=== PATIENT | male | born 1975 | race Caucasian/White ===

== ENCOUNTER 2023-01-25 12:23 | Outpatient (CLI) | payer BC, SELFPAY ==
--- NOTE | ~2023-01-25 | XR_ITS ---
XR abdomen/kub 1V 01/25/2023 12:57 Indication: Renal stones. Procedure: KUB Comparison: No prior studies for comparison. Findings: There are bilateral renal stones, largest in the lower pole on the right measuring 11 mm. B owel gas pattern nonobstructive. Lung bases unremarkable. No acute osseous abnormality. No stones are identified in the expected course of the ureters or bladder. Impression: 1: Bilateral nephrolithiasis. Reviewed, dictated and finalized at location L. Impression: 1: Bilateral nephrolithiasis.
== END 2023-01-25 12:24 | disposition home or self-care (01) ==
PROVIDERS: Visit Provider Urology
DX: N20.0 Calculus of kidney (principal)
CPT/HCPCS: 74018

== ENCOUNTER 2023-02-02 04:43 | Day surgery (SDC) | payer BC, SELFPAY ==
[2023-01-30 14:11] VITALS: BMI 35.9
--- NOTE | 2023-01-30 14:18 | PC.NURSE ---
Report to the Outpatient Waiting Room, entrance under the green pavilion located off [facility], at time 9:30 on date 02/02/23. Planned Procedure Time: 11:30. Time changes happen often and if your time is changed the preop area will call you the afternoon before. - You and your visitor will be asked to self-screen and do not enter if you have any COVID symptoms. - A mask is optional within the hospital at this time. Patients may have clear liquids (water, carbonated beverages, clear teas, apple juice) until 3 hours prior to surgery (8:30) with a maximum of 20 ounces. - No food from midnight until time of surgery Take the following medications with a SIP of water the morning of surgery: PAIN PILL IF NEEDED DO NOT STOP ANY OF YOUR OTHER PRESCRIPTION MEDICATIONS PRIOR TO SURGERY ?EXCEPT THE FOLLOWING Medications to discontinue per physician: N/A Date to take last dose: N/A Please no make-up, nail amharic, hairspray, perfume, deodorant, or body powder the day of surgery. No jewelry (including any body piercings) or valuables the day of surgery, leave them at home. Please take a shower or bath the night before, or the morning of, surgery with an antibacterial soap. Wear comfortable, loose fitting clothing. - Jewelry must be removed prior to entering the operating room. Rings and piercings that are not removed may be cut off. - The hospital will not accept responsibility for valuables. - Please leave all valuables, including medications, at home the day of surgery. If you are going home after surgery, a licensed petroleum transport driver must drive you home. - NO public transportation without another adult if you receive anesthesia. - We recommend that an adult stay with you for 24 hours following discharge. - We also recommend that you do not drive, make important decision, drink alcoholic beverages, or take any drugs that were not prescribed by your health care provider for at least 24 hours after your discharge time. Follow any additional instructions given to you from your surgeon. If you or anyone in your household have experienced Covid symptoms in the past week, please notify your surgeon or the nurse liaison at the phone number below for possible testing. Telephone instructions given to PT - MIKEY LINDSAY and asked if any additional questions and then verbalized understanding. Patient advised to call surgeon office or pre surgery nurse liaison [phone] if any additional questions.
[2023-02-02] VITALS (9 sets, daily range): BP systolic 148–190; BP diastolic 72–91; PULSE 61–80; RESP 13–24; TEMP 36.4–36.8; O2SAT 95–97
--- NOTE | ~2023-02-02 | XR_ITS ---
Supine and upright views of the abdomen Clinical history: Lithotripsy COMPARISON: 01/25/2023 Findings: Bowel gas pattern is nonspecific. No evidence for obstruction or free air. Stable right low er pole renal stone measuring approximately 12 mm in diameter. There is a suspected proximal left ure teral stone measuring 6 mm.. Osseous structures are intact. Impression: 12 mm right lower pole renal stone. Probable 6 mm proximal left ureteral stone. Reviewed, dictated and finalized at location . Impression: 12 mm right lower pole renal stone. Probable 6 mm proximal left ureteral stone.
--- NOTE | 2023-02-02 06:23 | WPDHPUPDATE1 ---
History and Physical Update Update Date/Time: 02/02/23 06:23 History and Physical has been reviewed, including an updated exam of the patient. There are NO changes in the patient's condition. Risks, benefits, and alternatives have been discussed and questions answered. Patient agrees to proceed with procedure.
--- NOTE | 2023-02-02 07:53 | P.PNAN_ITS ---
Anes - Initial Pre Proc Eval Procedure: Operation Date: 02/02/23 11:30 Proposed Procedures p Left Extracorporeal Shock Wave Lithotripsy - Main Alberts MD Date/Time: 02/02/23 07:53 Surgeon: Main Alberts MD Pre Op Diagnosis: Lt Renal Stone Patient Data Age: 47 Gender: M Height: 1.88 m Weight: 127 kg Allergies Allergy/AdvReac Type Severity Reaction Status Date / Time No Known Allergies Allergy Verified 01/30/23 14:10 Home Medications Medication Instructions Recorded Confirmed Type hydrocodone 5 mg-acetaminophen 325 1 tablet PO Q6H PRN Pain 01/30/23 01/30/23 History mg tablet Patient hx anesthesia problems: none Family hx anesthesia problems: none Results Review: All pre-operative results and documents have been reviewed as part of the pre- operative evaluation. [facility] Past Medical History Medical History (Updated 02/02/23 @ 07:53 by Christo Hanna DO) CAD (coronary artery disease) Surgical History Surgical History (Updated 02/02/23 @ 07:53 by Christo Hanna DO) History of coronary artery stent placement x1 - 2016 Social History Social History Smoking packs per day: 1 Smoking cigarettes per day: 20.0 Years smoked: 20 Smoking pack-years: 20.00 Smoking status: Current every day smoker Tobacco type: cigarettes Alcohol intake: current Alcohol use details: VERY RARE Substance use: never Substance use type: does not use Living arrangements: with family Spiritual care concerns: No Anes - Eval Final PreProcedure Day of Procedure 02/02/23 07:53 Patient weight: obese Heart: regular rate and rhythm Lungs: clear to auscultation Airway: Mallampati scale class II Neurological: alert and oriented Last oral intake: >/= 8 hours ASA classification: III Emergent: no Anesthetic plan: proceed Anesthesia type and monitoring: general LMA and standard monitoring Results Review: All pre-operative results and documents have been reviewed as part of the pre- operative evaluation. Informed Consent: The patient's anesthetic plan and its attendant risks and benefits were discussed with the patient/family/POA. Questions were solicited and answers provided to the satisfaction of the patient/family/POA.
--- NOTE | 2023-02-02 10:12 | ECG_ITS ---
Measurements Intervals Wisdom Rate: 69 P: 8 MD: 173 QRS: 5 QRSD: 93 T: -5 QT: 365 QTc: 392 Interpretive Statements SINUS RHYTHM NONSPECIFIC T-WAVE ABNORMALITY BORDERLINE ECG NO PREVIOUS ECG AVAILABLE FOR COMPARISON Electronically Signed On 02-02-2023 17:13:51 CDT by Danny Foss M.D.
[2023-02-02 10:53] LABS: INR 0.9; Prothrombin Time 13.1 Seconds (11.1-14.7)
[2023-02-02] MEDS: LACTATED RINGERS 1,000 ML 30 ML IV CONT (10:53)
[2023-02-02 10:54] LABS: Partial Thromboplastin Time 35.1 SECONDS (22.3-36.8)
[2023-02-02] MEDS: ceFAZolin 3 GM/D5W 100 ML 100 ML IVPB (11:49)
--- NOTE | 2023-02-02 12:21 | W.PM.PROC2 ---
Procedure Note - Detailed Date of Procedure 02/02/23 Pre-op Diagnosis Left ureteral stone / right kidney stones Post-op Diagnosis Same Procedure Performed Left ESWL Surgeon Main Alberts MD Anesthesia General Description of Procedure The patient was brought to the operative suite where he was placed in the supine position on the Dornier lithotripsy table. The focal point of the lithotripter was placed at a 6mm left proximal-mid calculus. A total of 3000 shocks were delivered at a power setting of 6. There appeared to be good fragmentation of the stone. The patient tolerated the procedure well and was taken to the recovery room in good condition.
[2023-02-02] MEDS: fentaNYL CITRATE INJ (*CRX) 100 MCG/2 ML VIAL 25 MCG IV PUSH ×4 (13:08→13:50)
[2023-02-02] MEDS: ONDANSETRON INJ 4 MG/2 ML VIAL IV PUSH (13:50)
[2023-02-02] MEDS: oxyCODONE HCL (*CRX) 5 MG TAB IR PO (14:24)
== END 2023-02-02 15:00 | disposition home or self-care (01) ==
PROVIDERS: Visit Provider Urology
PROC: (CPT 50590; principal; 2023-02-02 11:30)
DX: N20.2 Calculus of kidney with calculus of ureter (principal)
CPT/HCPCS: 50590; 36415; 74018; 85610; 85730; 93005; A9270; J0690; J1100; J2250; J2405; J2704; J3010; J7120

== ENCOUNTER 2023-02-09 11:38 | Outpatient (CLI) | payer BC, SELFPAY ==
--- NOTE | ~2023-02-09 | XR_ITS ---
EXAMINATION: XR abdomen/kub 1V DATE: 02/09/2023 12:00 INDICATION: Flank pain. Left sided back pain. TECHNIQUE: A supine view of the abdomen on 2 radiographs was obtained. COMPARISON: Abdomen radiograph 02/02/2023 FINDINGS: There are no dilated loops of bowel. There is a 13 mm stone in right kidney. There are 3 de nsities overlying proximal left ureter measuring up to 4 mm. IMPRESSION: 1. Stones in the right kidney and proximal left ureter. Reviewed, dictated and finalized at location A.
== END 2023-02-09 11:39 | disposition home or self-care (01) ==
LOC: ANHIMG 11:45
PROVIDERS: Visit Provider Urology
DX: R10.9 Unspecified abdominal pain (principal); N20.2 Calculus of kidney with calculus of ureter
CPT/HCPCS: 74018

== ENCOUNTER → 2023-02-23 08:22 | Outpatient (CLI) | payer BC, SELFPAY ==
--- NOTE | ~2023-02-23 | XR_ITS ---
EXAMINATION: XR abdomen/kub 1V DATE: 02/23/2023 08:41 INDICATION: Flank pain, acute. TECHNIQUE: A supine view of the abdomen on 2 radiographs was obtained. COMPARISON: Abdomen radiographs 02/09/2023 FINDINGS: There are no dilated loops of bowel. There is a 13 mm stone in right kidney lower pole. The re are 4 stones in left kidney measuring up to 3 mm. IMPRESSION: 1. Bilateral kidney stones. Reviewed, dictated and finalized at location A. IMPRESSION: 1. Bilateral kidney stones.
== END ==
PROVIDERS: PCP Urology; Visit Provider Urology
DX: R10.9 Unspecified abdominal pain (principal); N20.0 Calculus of kidney
CPT/HCPCS: 74018

== ENCOUNTER → 2023-08-28 16:35 | Outpatient (CLI) | payer BC, SELFPAY ==
--- NOTE | ~2023-08-28 | XR_ITS ---
XR abdomen/kub 1V 08/28/2023 17:01 Indication: Ureteral stone Procedure: KUB Comparison: Comparison to multiple prior studies sequentially, with oldest reviewed study dated 01/25. Findings: There is a large stone in the lower pole of the right kidney measuring 11 mm. Bowel gas pat tern nonobstructive. No acute osseous abnormality. Impression: 1: Right nephrolithiasis. Reviewed, dictated and finalized at location B. 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
== END ==
PROVIDERS: PCP Urology; Visit Provider Urology
DX: N20.1 Calculus of ureter (principal); R10.9 Unspecified abdominal pain
CPT/HCPCS: 74018

== ENCOUNTER 2023-09-28 01:40 | Day surgery (SDC) | payer BC, SELFPAY ==
[2023-09-26 13:10] VITALS: BMI 34.4
--- NOTE | 2023-09-26 13:14 | PC.NURSE ---
Report to the Outpatient Waiting Room, entrance under the green pavilion located off [facility], at time 1300 on date 09/28/23. Planned Procedure Time: 1500. Time changes happen often and if your time is changed the preop area will call you the afternoon before. - You and your visitor will be asked to self-screen and do not enter if you have any COVID symptoms. - A mask is optional within the hospital at this time. Patients may have clear liquids (water, carbonated beverages, clear teas, apple juice) until 3 hours prior to surgery with a maximum of 20 ounces. - No food from midnight until time of surgery Take the following medications with a SIP of water the morning of surgery: PAIN PILL IF NEEDED DO NOT STOP ANY OF YOUR OTHER PRESCRIPTION MEDICATIONS PRIOR TO SURGERY ?EXCEPT THE FOLLOWING Medications to discontinue per physician: N/A Date to take last dose: N/A Please no make-up, nail [place], hairspray, perfume, deodorant, or body powder the day of surgery. No jewelry (including any body piercings) or valuables the day of surgery, leave them at home. Please take a shower or bath the night before, or the morning of, surgery with an antibacterial soap. Wear comfortable, loose fitting clothing. - Jewelry must be removed prior to entering the operating room. Rings and piercings that are not removed may be cut off. - The hospital will not accept responsibility for valuables. - Please leave all valuables, including medications, at home the day of surgery. If you are going home after surgery, a licensed milk pickup driver must drive you home. - NO public transportation without another adult if you receive anesthesia. - We recommend that an adult stay with you for 24 hours following discharge. - We also recommend that you do not drive, make important decision, drink alcoholic beverages, or take any drugs that were not prescribed by your health care provider for at least 24 hours after your discharge time. Follow any additional instructions given to you from your surgeon. If you or anyone in your household have experienced Covid symptoms in the past week, please notify your surgeon or the nurse liaison at the phone number below for possible testing. Telephone instructions given to PT - MIKEY LINDSAY and asked if any additional questions and then verbalized understanding. Patient advised to call surgeon office or pre surgery nurse liaison [phone] if any additional questions.
--- NOTE | 2023-09-27 16:38 | P.HP_ITS ---
History of Present Illness History of Present Illness Consent: Risks, benefits, and alternatives have been discussed and questions answered. Patient agrees to proceed with procedure. Chief complaint: Right Kidney Stone Narrative: Clarence Root is a 48 year old male Without a known history of recurrent urolithiasis. Several months ago he had CT imaging that demonstrated several small stones in his right kidney with a 6 mm right renal pelvic stone. Started causing neural pain and he now elects for right ESWL. He is aware the risk including, but not limited to, need for additional procedures, adverse cardiopulmonary events, hematuria or perinephric hematoma. Review of Systems Cardiovascular: Cardiovascular: Denies chest pain, Denies lightheadedness, Denies palpitations and Denies dyspnea Respiratory: Respiratory: Denies dyspnea Gastrointestinal: Gastrointestinal: Denies diarrhea, Denies nausea and Denies vomiting Genitourinary: Genitourinary: Denies hematuria and Denies dysuria Endocrine: Endocrine: Denies palpitations [facility] Past Medical History Medical History (Updated 09/27/23 @ 16:39 by Main Alberts MD) CAD (coronary artery disease) Surgical History Surgical History (Updated 02/02/23 @ 07:53 by Christo Hanna DO) History of coronary artery stent placement x1 - 2016 Social History Social History Smoking packs per day: 1 Smoking cigarettes per day: 20.0 Years smoked: 20 Smoking pack-years: 20.00 Smoking status: Current every day smoker Tobacco type: cigarettes Alcohol intake: never Alcohol use details: VERY RARE Substance use: never Substance use type: does not use Living arrangements: alone Spiritual care concerns: No Meds Home Medications and Allergies Home Medications Medication Instructions Recorded Confirmed Type hydrocodone 5 mg-acetaminophen 325 1 tablet PO QID PRN Pain 09/26/23 09/26/23 History mg tablet Allergies Allergy/AdvReac Type Severity Reaction Status Date / Time No Known Allergies Allergy Verified 09/26/23 13:08 Exam Const: General: no acute distress Resp: Effort & Inspection: normal respiratory effort GI: Inspection: non-distended GI Palp: No abdominal tenderness and No Guarding due to palpation present (GI) Auscultation: normal bowel sounds Assessment and Plan Assessment and plan (1) Renal calculus, right: Code(s): N20.0 - Calculus of kidney Status: Acute Assessment and Plan: * Right ESWL
[2023-09-28] VITALS (8 sets, daily range): BP systolic 131–181; BP diastolic 74–94; PULSE 62–90; RESP 14–20; TEMP 36.1–37.1; O2SAT 97–99
--- NOTE | ~2023-09-28 | CT_ITS ---
EXAMINATION: CT abdomen pelvis wo con DATE: 09/28/2023 14:08 INDICATION: Right-sided kidney stone TECHNIQUE: Computed tomography (CT) of the abdomen and pelvis was performed without intravenous contr ast. The dose-length product (DLP) was 899.05 mGy-cm. Automated exposure control and iterative recons truction technique were employed. COMPARISON: None FINDINGS: Minimal dependent atelectasis is present in the lung bases. The heart size is normal. The l iver, spleen, pancreas, gallbladder, and adrenal glands are normal. There is an 8 mm stone projecting in the proximal right ureter causing mild hydronephrosis. There is a 9 mm nonobstructing stone of th e right kidney lower pole. The left kidney is unremarkable. There are no stones in the urinary bladde r. There is calcified atherosclerosis of the aorta and many of the other arteries. No pathologically enlarged abdominal or pelvic lymph nodes are identified. No free intraperitoneal gas or evidence of b owel obstruction. There is diverticulosis of the colon. There is subtle fat stranding adjacent to the mid sigmoid colon. There is a small umbilical hernia containing fat. IMPRESSION: 1. 8 mm stone of the proximal right ureter causing mild hydronephrosis. 2. Nonobstructing right nephrolithiasis. 3. Diverticulosis with mild uncomplicated sigmoid diverticulitis. Reviewed, dictated and finalized at location B. 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
--- NOTE | ~2023-09-28 | XR_ITS ---
EXAMINATION: XR abdomen/kub 1V INDICATION: Calculus of the ureter TECHNIQUE: Supine views of the abdomen were obtained on 2 radiographs. COMPARISON: 08/28/2023 FINDINGS: A 6 mm stone projects in the expected location of the proximal right ureter at the level of the right L3 transverse process. There is a 12 mm stone of the right kidney lower pole. No additiona l urolithiasis is identified. The bowel gas pattern is normal. IMPRESSION: 1. 6 mm stone in the proximal right ureter. 2. Right nephrolithiasis. Reviewed, dictated and finalized at location B. [employer]
--- NOTE | 2023-09-28 06:12 | WPDHPUPDATE1 ---
History and Physical Update Update Date/Time: 09/28/23 06:12 History and Physical has been reviewed, including an updated exam of the patient. There are NO changes in the patient's condition. Risks, benefits, and alternatives have been discussed and questions answered. Patient agrees to proceed with procedure.
[2023-09-28 13:26] LABS: Appearance Urine Clear (Clear); Bilirubin Urine Negative (Negative); Blood Urine Negative (Negative); Color Urine Yellow (Yellow); Glucose Urine UA Negative (Negative); Ketones Urine Negative (Negative); Leukocyte Esterase Ur Negative LEU/UL (Negative); Nitrate Urine Negative (Negative); Protein Urine Negative (Negative); Specific Grav Ur 1.022 (1.001-1.035); Urobilinogen Urine 0.2 mg/dL (<2.0); pH Urine 5.5 (5.0-9.0)
--- NOTE | 2023-09-28 13:41 | WPDANESEPPF ---
Anes - Initial Pre Proc Eval Procedure: Operation Date: 09/28/23 15:00 Proposed Procedures p Right Extracorporeal Shock Wave Lithotripsy - Main Alberts MD Date/Time: 09/28/23 13:41 Surgeon: Main Alberts MD Pre Op Diagnosis: Right Kidney Stone Patient Data Age: 48 Gender: M Height: 1.88 m Weight: 121.6 kg Allergies Allergy/AdvReac Type Severity Reaction Status Date / Time No Known Allergies Allergy Verified 09/26/23 13:08 Home Medications Medication Instructions Recorded Confirmed Type hydrocodone 5 mg-acetaminophen 325 1 tablet PO QID PRN Pain 09/26/23 09/26/23 History mg tablet Laboratory Tests 09/28/23 13:05 Urine Color Pending Urine Appearance Pending Urine pH Pending Ur Specific [place] Pending Urine Protein Pending Urine Glucose (UA) Pending Urine Ketones Pending Ur Blood (Man) Pending Urine Nitrate Pending Urine Bilirubin Pending Urine Urobilinogen Pending Leukocyte Esterase Rfl Pending Patient hx anesthesia problems: none Family hx anesthesia problems: none Results Review: All pre-operative results and documents have been reviewed as part of the pre-operative evaluation. [facility] Past Medical History Medical History CAD (coronary artery disease) Surgical History Surgical History (Updated 02/02/23 @ 07:53 by Christo Hanna DO) History of coronary artery stent placement x1 - 2016 Social History Social History Smoking packs per day: 1 Smoking cigarettes per day: 20.0 Years smoked: 20 Smoking pack-years: 20.00 Smoking status: Current every day smoker Tobacco type: cigarettes Alcohol intake: never Alcohol use details: VERY RARE Substance use: never Substance use type: does not use Living arrangements: alone Spiritual care concerns: No Anes - Eval Final PreProcedure Day of Procedure 09/28/23 13:41 Patient weight: obese Heart: regular rate and rhythm Lungs: decreased breath sounds Airway: Mallampati scale class II Neurological: alert and oriented Last oral intake: >/= 8 hours ASA classification: III Emergent: no Anesthetic plan: proceed Anesthesia type and monitoring: general LMA and standard monitoring Results Review: All pre-operative results and documents have been reviewed as part of the pre-operative evaluation. Informed Consent: The patient's anesthetic plan and its attendant risks and benefits were discussed with the patient/family/POA. Questions were solicited and answers provided to the satisfaction of the patient/family/POA.
[2023-09-28] MEDS: fentaNYL CITRATE INJ (*CRX) 100 MCG/2 ML VIAL 50 MCG IV PUSH (13:45)
[2023-09-28] MEDS: LACTATED RINGERS 1,000 ML 30 ML IV CONT (13:45)
[2023-09-28 13:54] LABS: Add Urine Microscopic? NO
[2023-09-28 14:22] LABS: Prothrombin Time 13.6 Seconds (11.1-14.7)
[2023-09-28 14:23] LABS: Partial Thromboplastin Time 33.8 SECONDS (22.3-36.8)
[2023-09-28] MEDS: ceFAZolin 3 GM/D5W 100 ML 100 ML IVPB (15:26)
--- NOTE | 2023-09-28 15:37 | W.PM.PROC2 ---
Procedure Note - Detailed Date of Procedure 09/28/23 Pre-op Diagnosis Right Kidney and Right Ureteral Stone Post-op Diagnosis Same Procedure Performed Right ESWL Surgeon Main Alberts MD Anesthesia General Description of Procedure The patient was brought to the operative suite where he was placed in the supine position on the Dornier lithotripsy table. The focal point of the lithotripter was placed at a 6-7mm obstructing right proximal ureteral calculus. A total of 3000 shocks were delivered at a power setting of 6. There appeared to be good fragmentation of the stone. The patient tolerated the procedure well and was taken to the recovery room in good condition. Drains No Pathology None sent Complications No immediate complications Condition Stable Disposition PACU
[2023-09-28] MEDS: fentaNYL CITRATE INJ (*CRX) 100 MCG/2 ML VIAL 25 MCG IV PUSH ×4 (16:49→16:55)
[2023-09-28] MEDS: oxyCODONE HCL (*CRX) 5 MG TAB IR PO (17:06)
[2023-09-28] MEDS: KETOROLAC 30 MG/ML VIAL (*BKC) IV PUSH (17:15)
--- NOTE | 2023-09-28 17:44 | SUR.PHASEII ---
[id number] - dr. rocha spoke with pt in regards to surgery
== END 2023-09-28 17:37 | disposition home or self-care (01) ==
PROVIDERS: Visit Provider Urology
PROC: (CPT 50590; principal; 2023-09-28 15:00)
DX: N20.2 Calculus of kidney with calculus of ureter (principal); I25.10 Atherosclerotic heart disease of native coronary artery without angina pectoris; Z95.5 Presence of coronary angioplasty implant and graft; F17.210 Nicotine dependence, cigarettes, uncomplicated; E66.9 Obesity, unspecified; Z68.34 Body mass index [BMI] 34.0-34.9, adult
CPT/HCPCS: 50590; 36415; 74018; 74176; 81003; 85610; 85730; A9270; J0690; J1100; J1885; J2250; J2405; J2704; J3010; J7120

== ENCOUNTER 2023-10-19 14:08 | Outpatient (CLI) | payer BC, SELFPAY | END 2023-10-19 14:09 | disposition home or self-care (01) | PROVIDERS: Visit Provider Urology | DX: Z01.818 Encounter for other preprocedural examination (principal); N20.0 Calculus of kidney | CPT/HCPCS: 87086 ==

== ENCOUNTER 2023-10-26 00:53 | Day surgery (SDC) | payer BC, SELFPAY ==
--- NOTE | 2023-10-16 11:46 | PC.NURSE ---
Report to the Outpatient Waiting Room, entrance under the green pavilion located off [facility], at time 11:00 on date 10/26/23. Planned Procedure Time: 1:00. Time changes happen often and if your time is changed the preop area will call you the afternoon before. - You and your visitor will be asked to self-screen and do not enter if you have any COVID symptoms. - A mask is optional within the hospital at this time. Patients may have clear liquids (water, carbonated beverages, clear teas, apple juice) until 3 hours prior to surgery (10:00) with a maximum of 20 ounces. - No food from midnight until time of surgery Take the following medications with a SIP of water the morning of surgery: N/A DO NOT STOP ANY OF YOUR OTHER PRESCRIPTION MEDICATIONS PRIOR TO SURGERY ?EXCEPT THE FOLLOWING Medications to discontinue per physician: N/A Date to take last dose: N/A Please no make-up, nail french, hairspray, perfume, deodorant, or body powder the day of surgery. No jewelry (including any body piercings) or valuables the day of surgery, leave them at home. Please take a shower or bath the night before, or the morning of, surgery with an antibacterial soap. Wear comfortable, loose fitting clothing. - Jewelry must be removed prior to entering the operating room. Rings and piercings that are not removed may be cut off. - The hospital will not accept responsibility for valuables. - Please leave all valuables, including medications, at home the day of surgery. If you are going home after surgery, a licensed delivery driver/customer service must drive you home. - NO public transportation without another adult if you receive anesthesia. - We recommend that an adult stay with you for 24 hours following discharge. - We also recommend that you do not drive, make important decision, drink alcoholic beverages, or take any drugs that were not prescribed by your health care provider for at least 24 hours after your discharge time. Follow any additional instructions given to you from your surgeon. If you or anyone in your household have experienced Covid symptoms in the past week, please notify your surgeon or the nurse liaison at the phone number below for possible testing. Telephone instructions given to MELISA JENSEN and asked if any additional questions and then verbalized understanding. Patient advised to call surgeon office or pre surgery nurse liaison [phone] if any additional questions.
[2023-10-16 11:55] VITALS: BMI 34.2
[2023-10-26] VITALS (10 sets, daily range): BP systolic 149–188; BP diastolic 66–90; PULSE 86–98; RESP 12–27; TEMP 36.6–37.8; O2SAT 94–100
--- NOTE | ~2023-10-26 | XR_ITS ---
Supine and upright views of the abdomen Clinical history: Lithotripsy COMPARISON: 09/28/2023 Findings: Bowel gas pattern is nonspecific. No evidence for obstruction or free air. 11 mm right jessie l stone present. Osseous structures are intact. Impression: 11 mm right renal stone. Reviewed, dictated and finalized at [facility]. Impression: 11 mm right renal stone.
--- NOTE | 2023-10-26 06:18 | WPDHPUPDATE1 ---
History and Physical Update Update Date/Time: 10/26/23 06:18 History and Physical has been reviewed, including an updated exam of the patient. There are NO changes in the patient's condition. Risks, benefits, and alternatives have been discussed and questions answered. Patient agrees to proceed with procedure.
[2023-10-26] MEDS: LACTATED RINGERS 1,000 ML 30 ML IV CONT ×2 (10:00→13:20)
--- NOTE | 2023-10-26 10:11 | WPDANESEPPF ---
Anes - Initial Pre Proc Eval Procedure: Operation Date: 10/26/23 11:30 Proposed Procedures p Right Extracorporeal Shock Wave Lithotripsy - Main Alberts MD Date/Time: 10/26/23 10:11 Surgeon: Main Alberts MD Pre Op Diagnosis: right renal stones Patient Data Age: 48 Gender: M Height: 1.88 m Weight: 121.2 kg Allergies Allergy/AdvReac Type Severity Reaction Status Date / Time No Known Allergies Allergy Verified 10/16/23 11:46 Home Medications Medication Instructions Recorded Confirmed Type No Home Medications 10/16/23 10/16/23 History Patient hx anesthesia problems: other (violent emergence) Family hx anesthesia problems: none Results Review: All pre-operative results and documents have been reviewed as part of the pre-operative evaluation. [facility] Past Medical History Medical History (Updated 10/26/23 @ 10:12 by Rogelio Frias MD) CAD (coronary artery disease) Obesity Surgical History Surgical History History of coronary artery stent placement x1 - 2016 Social History Social History Smoking packs per day: 1 Smoking cigarettes per day: 20.0 Years smoked: 20 Smoking pack-years: 20.00 Smoking status: Current every day smoker Tobacco type: cigarettes Alcohol intake: never Alcohol use details: VERY RARE Substance use: never Substance use type: does not use Living arrangements: alone Spiritual care concerns: No Anes - Eval Final PreProcedure Day of Procedure 10/26/23 10:11 Patient weight: obese Heart: regular rate and rhythm Lungs: clear to auscultation Airway: Mallampati scale class II Neurological: alert and oriented Last oral intake: >/= 8 hours ASA classification: III Emergent: no Anesthetic plan: proceed Anesthesia type and monitoring: general LMA and standard monitoring Results Review: All pre-operative results and documents have been reviewed as part of the pre-operative evaluation. Informed Consent: The patient's anesthetic plan and its attendant risks and benefits were discussed with the patient/family/POA. Questions were solicited and answers provided to the satisfaction of the patient/family/POA.
[2023-10-26] MEDS: FAMOTIDINE 20 MG/2 ML VIAL IV PUSH (10:24)
[2023-10-26] MEDS: ceFAZolin 3 GM/D5W 100 ML 100 ML IVPB (11:48)
--- NOTE | 2023-10-26 11:58 | W.PM.PROC2 ---
Procedure Note - Detailed Date of Procedure 10/26/23 Pre-op Diagnosis Right renal stones Post-op Diagnosis Same Procedure Performed Right ESWL Surgeon Main Alberts MD Anesthesia General Description of Procedure The patient was brought to the operative suite where he was placed in the supine position on the Dornier lithotripsy table. The focal point of the lithotripter was placed at a 8-9mm right lower calyceal calculus. A total of 2500 shocks were delivered at a power setting of 4. There appeared to be good fragmentation of the stone. The patient tolerated the procedure well and was taken to the recovery room in good condition. Drains No Packing No Pathology None sent Complications No immediate complications Condition Stable Disposition PACU
[2023-10-26] MEDS: ONDANSETRON INJ 4 MG/2 ML VIAL IV PUSH (13:25)
[2023-10-26] MEDS: fentaNYL CITRATE INJ (*CRX) 100 MCG/2 ML VIAL 25 MCG IV PUSH ×4 (13:38→14:32)
[2023-10-26] MEDS: MEPERIDINE HCL INJ (*CRX) 50 MG/ML AMPUL 25 MG IV PUSH (14:11)
[2023-10-26] MEDS: KETOROLAC 30 MG/ML VIAL (*BKC) IV PUSH (14:12)
[2023-10-26] MEDS: diphenhydrAMINE HCl INJ 50 MG/ML VIAL 25 MG IV PUSH (14:21)
== END 2023-10-26 14:50 | disposition home or self-care (01) ==
PROVIDERS: Visit Provider Urology
PROC: (CPT 50590; principal; 2023-10-26 11:30)
DX: N20.0 Calculus of kidney (principal); F17.210 Nicotine dependence, cigarettes, uncomplicated; E66.9 Obesity, unspecified; Z68.33 Body mass index [BMI] 33.0-33.9, adult; Z98.890 Other specified postprocedural states; Z95.5 Presence of coronary angioplasty implant and graft; Z86.79 Personal history of other diseases of the circulatory system
CPT/HCPCS: 50590; 74018; J0690; J1200; J1885; J2175; J2250; J2405; J3010; J7120

== ENCOUNTER 2023-11-12 14:49 | Outpatient (CLI) | payer BC, SELFPAY ==
--- NOTE | ~2023-11-12 | XR_ITS ---
Supine and upright views of the abdomen Clinical history: Right renal stone COMPARISON: 10/26/2023 Findings: Bowel gas pattern is nonspecific. No evidence for obstruction or free air. No abnormal mass lesion or calcification is seen. Osseous structures are intact. Impression: No significant abnormality is seen. Reviewed, dictated and finalized at [facility]. Impression: No significant abnormality is seen.
== END 2023-11-12 14:50 ==
LOC: MICIMG 14:50
PROVIDERS: PCP Urology; Visit Provider Urology
DX: N20.0 Calculus of kidney (principal)
CPT/HCPCS: 74018

== ENCOUNTER 2025-06-05 08:21 | Emergency (ER) | payer BC, SELFPAY ==
--- NOTE | 2025-06-05 08:23 | ED_ITS ---
HPI - Male Genitourinary General Chief complaint: Urogenital-Male Stated complaint: BLOOD IN URINE Time Seen by Provider: 06/05/25 08:22 Source: patient Mode of arrival: ambulatory Limitations: no limitations History of Present Illness HPI Narrative: Clarence is a 49-year-old male patient presenting to the clinic today with complaints of blood in his urine off and on for the past 2 years. He reports that 2 years ago his urologist-Dr. Alberts performed a lithotripsy on him for his kidney stones. Ever since then he has had intermittent blood in his urine. Has stated he seen his urologist for this after having the lithotripsy and told him about the blood in his urine and the reports that the urologist did not do any further investigation. Last night it took him approx 45 minutes to urinate/pass a large clot from his urethra. Denies any abdomen pain or flank pain currently. No fever, chills, or body aches. Is able to pass urine freely at this time. He does not currently take any medications. He is a current smoker. History of cardiac stent, hyperlipidemia, obesity, HTN, and kidney stones. Related Data Allergies Allergy/AdvReac Type Severity Reaction Status Date / Time No Known Allergies Allergy Verified 06/05/25 08:31 Review of Systems Review of Systems: Pertinent positives per HPI. Patient denies any fever, chills, rash, headache, visual changes, dizziness, cough, runny nose, sore throat, shortness of breath, chest pain, palpitations, nausea, vomiting, diarrhea, constipation, abdominal pain, or any urinary issues. [facility] Past Medical History Medical History Obesity CAD (coronary artery disease) Surgical History Surgical History History of coronary artery stent placement x1 - 2016 Social History Social History Smoking packs per day: 1 Smoking cigarettes per day: 20.0 Years smoked: 20 Smoking pack-years: 20.00 Smoking status: Current every day smoker Tobacco type: cigarettes Alcohol intake: never Alcohol use details: VERY RARE Substance use: never Substance use type: does not use Living arrangements: alone Spiritual care concerns: No Comments At the time of my signature, I reviewed and agree with the nursing past medical, surgical, social, and family history. There is no relevant family history pertinent to the patient complaint. Exam Narrative: General: Well-developed, obese, in no apparent distress. Head: Normocephalic, atraumatic. Cardio: Regular rate and rhythm, s1 and s2 normal, no murmur appreciated. Resp: Clear to auscultation bilaterally, no rhonchi, rales, wheezing or rubs. Abdomen: Soft, pliable, bowel sounds present in all quadrants, non-tender to palpation, no organomegly, no CVAT tenderness. : Deferred Integumentary: [place], warm, and dry, intact without lesion, no rashes. Course Course Emergency Course: Portions of this record may have been created with voice recognition software. Level of Care: Express Care Visit Vital Signs Vital signs: Vital signs reviewed Transfer Transfered to: [facility] Transportation: Other (private car) Transfer rationale: Higher level of care- blood in urine Accepting physician: Dr. Alva Transfer comments: Private car MDM - Male Genitourinary MDM Narrative Medical decision making narrative: At the time of visit patient is resting comfortably on the exam table. Patient appears to be nontoxic. Complaints of blood in his urine off and on for the past 2 years. He reports that 2 years ago his urologist-Dr. Alberts performed a lithotripsy on him for his kidney stones. Ever since then he has had intermittent blood in his urine. Has stated he seen his urologist for this after having the lithotripsy and told him about the blood in his urine and the reports that the urologist did not do any further investigation. Last night it took him approx 45 minutes to urinate/pass a large clot from his urethra. Denies any abdomen pain or flank pain currently. No fever, chills, or body aches. Is able to pass urine freely at this time. He does not currently take any medications. He is a current smoker. History of cardiac stent, hyperlipidemia, obesity, HTN, and kidney stones. On exam patient has abdomen soft, pliable, nondistended, nontender is to palpation, bowel sounds present all 4 quadrants, no CVAT tenderness, no organomegaly. Skin is pink warm and dry. Labs: Urinalysis shows 3+ blood Plan: Patient has been having intermittent blood in his urine for the past 2 years. Last night he passed a large blood clot. Has not attempted to call his urologist. Explained to the patient that there is very little that we can do in the Express Care at this time and recommend transfer to the ER for further evaluation as the patient does not have a primary care provider. Patient is requesting answers for his symptoms-would like to find out today what is going on. Recommend further labs and further diagnostic testing. Main concern would be to rule out bladder cancer and this was discussed with the patient. Patient voiced understanding and agrees to transfer to [facility] ER. Contacted Dr. Alva at [facility] ER report was given for continuity of care. Dr. Alva accepts patient for transfer. Patient to drive via POV. Differential Diagnosis Differential diagnosis: Likely urinary tract infection, urethritis, prostatitis, acute retention of urine and other (Ureteral stone, kidney stone, bladder cancer) Discharge Plan Discharge Clinical Impression: Blood clots in urine, History of kidney stones Blood in urine Qualifiers: Hematuria type: gross Qualified Code(s): R31.0 - Gross hematuria Patient Disposition: Acute Care Hospital Condition: Stable Patient Language: [place]an Follow-up/Referrals: UNKNOWN,DOCTOR [Non-Staff] Time of Disposition: 09:10 Quality NIHSS Nursing Documentation ED NIHSS nursing documentation: reviewed/agree
[2025-06-05 08:35] VITALS: BP 179/92; PULSE 78; RESP 16; TEMP 36.8; O2SAT 99
[2025-06-05 08:48] LABS: EDUAAPPEAR Cloudy; EDUABILI Negative (Negative); EDUABLOOD 3+ (Negative); EDUACOLOR1 Pink; EDUAGLUCOSE Negative (Negative); EDUAKETONE Negative (Negative); EDUALEUKO Negative (Negative); EDUANITRATE Negative (Negative); EDUAPH 6.5; EDUAPROTEIN Negative (Negative); EDUASPGRAVITY 1.025; EDUAUROBILI 0.2
== END 2025-06-05 09:01 | disposition short-term general hospital (02) ==
PROVIDERS: Emergency Provider Nurse Practitioner Family; PCP Urology
DX: R31.0 Gross hematuria (principal); Z87.442 Personal history of urinary calculi; F17.210 Nicotine dependence, cigarettes, uncomplicated; I25.10 Atherosclerotic heart disease of native coronary artery without angina pectoris; I10 Essential (primary) hypertension; E78.5 Hyperlipidemia, unspecified; E66.9 Obesity, unspecified; Z68.34 Body mass index [BMI] 34.0-34.9, adult; Z95.5 Presence of coronary angioplasty implant and graft
CPT/HCPCS: 81003; 99212; G0463

== ENCOUNTER 2025-06-05 09:16 | Emergency (ER) | payer BC, SELFPAY ==
--- OUTSIDE RECORDS SUMMARY | 2015-04-26 09:45 | XMS_ITS | Continuity of Care Document ---
Author Organization [id number] - [facility] Address [address] [facility] [facility] [address] [place] [address] Phone Care Team Providers Care It Programmer Analyst Name Role Phone Elizabeth Bae MD Unavailable Unavailable Allergies, Adverse Reactions, Alerts Substance Reaction Status Criticality No Known Allergies Active No Inform ation Medications Medication Instructions Dosage Effective Dates (start - stop) Status Comments Skelaxin 800 mg tablet take 1 tablet by oral route 3 times every day as needed - Active Procedures Procedure Date OFFICE/OUTPT EM NEW DETAILED/LOW 30 MINS Advance Directives Directive Yes / No Effective Date File Name No Information Encounters Encounter Description Practice Location Reason(s) For Visit Diagnoses Date Provider Providers Copied on Encounter OFFICE/OUTPT EM NEW DETAILED/LOW 30 MINS [id number] - [facility], [address] [place] [address] [address], [place], [address], tel: [phone] PMS Kathia Musculoskeletal pain (chief complaint) Hamstring strainElevated BP 1201 5 Kathia Johnson. [address] [place] [address] Philanthropy Officer [place], [place], [id number], [place]. tel:[phone] Referring Provider: Elizabeth Bae, [address] [place] [address] [place], [address] . tel:[phone] Family History Family Member Type Diagnosis Age At Onset Mother Problem (finding) alcoholism Mother Problem (finding) migraine Paternal grandfather Problem (finding) alcoholism Paternal grandmother Problem (finding) malignant neopl asm of uterus Maternal grandfather Problem (finding) malignant neopl asm of pancreas Father Problem (finding) alcoholism Paternal grandfather Problem (finding) Cancer, unknown Maternal grandmother Problem (finding) malignant neopl asm of pharynx Payers Payer name Insurance type Covered alliance party ID Authortrang smith(s) [facility] [place] - [place] BL [id number] Social History Type Description Quantity Date Captured Comments Alcohol Use Details beer & liquor 2 drinks monthly 2014 Caffeine Use Details coffee 2 cups per day Tobacco Use Status Moderate cigarette smoker (10-19 cigs/day) Smoking Status Heavy tobacco smoker Smoking Tobacco Use Details Cigarette: Years Used 26 Cigarette: 10 Cigarettes per day, Pack Year: 13 Sex Male Chief Complaint And Reason For Visit From encounter dated '04/26/2015 14:45'. Musculoskeletal pain (chief complaint). Description: Onset: 18 days ago. It occurs constantly and is stable. Location: left (thigh). There is no radiation. The pain is dull. Context: there is an injury. Trauma type: lifting, occurred at home. The pain is aggravated by lifting and movement. Associated symptoms include decreased mobility and limping. Pertinent negatives include bruising, crepitus, difficulty initiating sleep, joint instability, joint tenderness, locking, nocturnal awakening, nocturnal pain, numbness, popping, spasms, swelling, tingling in the arms, tingling in the legs and weakness. Additional information: Was hospitalized for Rhabdomyolysis on 04/10/18 at [facility]. Was discharged after treatment with improvement of labs but still c/o pain in L thigh. [facility] was told has L hamstring strain and was discharged on Percocet and ibuprofen. Reason For Referral Reason For Referral No Information Plan Of Treatment Date Type Action Status Patient Education Hamstring Strain: After Your Visit completed History Of Present Illness Encounter Date Complaint History Of Prese nt Illness Musculoskeletal pain Onset: 18 d ays ago. It occurs constantly and is stable. Location: left (thigh). There is no radiation. The pain is dull. Context: there is an injury. Trauma type: lifting, occurred at home. The pain is aggravated by lifting and movement. Associated symptoms include decreased mobility and limping. Pertinent negatives include bruising, crepitus, difficulty initiating sleep, joint instability, joint tenderness, locking, nocturnal awakening, nocturnal pain, numbness, popping, spasms, swelling, tingling in the arms, tingling in the legs and weakness. Additional information: Was hospitalized for Rhabdomyolysis on 04/10/18 at [facility]. Was discharged after treatment with improvement of labs but still c/o pain in L thigh. Went to [facility] ER on 04/23/15, was told has L hamstring strain and was discharged on Percocet and ibuprofen. Functional Status Date Functional Assessmen t No Information Instructions Date Instruction Additional Infor mation No Information Assessments Type Assessment Date No Information Patient Care Teams Name Effective Dates (start - stop) Status Members No Information
--- NOTE | ~2025-06-05 | CT_ITS ---
CT ABDOMEN AND PELVIS WITHOUT CONTRAST Clinical History: hematuria, flank pain, kidney stone history Comparison: CT 09/28/2023 Technique: Unenhanced axial images lung bases to symphysis pubis Coronal, sagittal reformats CT images acquired with automatic exposure control for dose reduction DLP: 869 mGy-cm Findings: Without intravenous contrast, sensitivity for detecting visceral parenchymal abnormalities decreased. Lung bases: Clear. Visualized heart and pericardium: Unremarkable. Liver: Enlarged. Steatosis. Probable early cirrhosis. Gallbladder: Unremarkable. Spleen: Unremarkable. Pancreas: Unremarkable. Adrenal glands: Unremarkable. Kidneys: Right kidney- No hydronephrosis. No renal stones. Left kidney- No hydronephrosis. Tiny stones. Distal esophagus/stomach: Unremarkable. Small bowel loops: Normal caliber and wall thickness. Colon: Diverticula. Normal caliber and wall thickness. Normal RLQ appendix. Nodes: No enlarged nodes. Peritoneum: No ascites. No free intraperitoneal air. Urinary bladder: Asymmetric soft tissue abnormality left UVJ. Prostate: Unremarkable. Bones: No acute bony abnormality. Soft tissues: Right inguinal hernia repair. Unopacified abdominal aorta: No aneurysmal dilatation. Atherosclerotic disease. IMPRESSION: 1. Bladder mass highly worrisome for malignancy. Recommend urology consultation. 2. Tiny stones left kidney. No hydronephrosis. 3. Additional findings as above. Reviewed, dictated and finalized at location R. IMPRESSION: 1. Bladder mass highly worrisome for malignancy. Recommend urology consultatio n. 2. Tiny stones left kidney. No hydronephrosis. 3. Additional findings as above.
[2025-06-05 09:22] VITALS: BP 184/90; PULSE 85; RESP 20; TEMP 36.9; O2SAT 99
[2025-06-05 09:37] LABS: Non Pathogenic Casts 0-2
--- OUTSIDE RECORDS SUMMARY | 2025-06-05 09:37 | XMS_ITS | Clinical Summary ---
Author Organization [facility] Yarely lopez [place] Address [address] [place] [address] Phone Care Team Providers Care Medical Reviewer Name Role Phone Unavailable Primary Care Provider Unavailabl e Allergies No known active allergies Medications No known medications Active Problems Problem Noted Date Diagnosed Date Tobacco use 08/09/2015 Family History Medical History Relation Name Comments Healthy Father Healthy Mother Relation Name Status Comments Father Alive Mother Alive Social History Tobacco Use Types Packs/Day Years Used Date Smoking Tobacco: Every Day Cigarettes Alcohol Use Standard Drinks/Week Comments Yes 0 (1 standard drink = 0.6 oz pur e alcohol) occasionally Sex and Gender Information Value Date Recorded Sex Assigned at Not on file Legal Sex Male 2:02 PM CDT Gender Identity Not on file Sexual Orientation Not on file Last Filed Vital Signs Vital Sign Reading Time Taken Comments Blood Pressure 168/112 08/09/2015 3:07 PM ADMISSIONS MANAGER RN Pulse 87 08/09/2015 3:07 PM ADMISSIONS MANAGER RN Temperature 36.9 C (98.5 F) 08/09/2015 3:07 PM ADMISSIONS MANAGER RN Respiratory Rate 18 08/09/2015 3:07 PM ADMISSIONS MANAGER RN Oxygen Saturation 97% 08/09/2015 3:07 PM ADMISSIONS MANAGER RN Inhaled Oxygen Concentration - - Weight 108.9 kg (240 lb) 08/09/2015 3:07 PM ADMISSIONS MANAGER RN Height 188 cm (6' 2) 08/09/2015 3:07 PM ADMISSIONS MANAGER RN Body Mass Index 30.81 08/09/2015 3:07 PM ADMISSIONS MANAGER RN Plan of Treatment Health Maintenance Due Date Last Done Comments DTAP/TDAP/TD VACCINES (1 - Tdap) 1995 HEPATITIS B VACCINES (1 of 3 - 19+ 3-dose series) 07/06 COLORECTAL SCREENING 2021 Colorectal Cancer Screening 2021 FIT-DNA Q 3 years 2021 FIT/FOBT Q 1 year 2021 Flex Sig/CT Colonography Q 5 years 2021 INFLUENZA VACCINE (#1) 2025 Insurance [facility] BLUE ACCESS/TRUE BLUE PPO
[2025-06-05 09:43] LABS: Add Urine Microscopic? YES; Appearance Urine Cloudy (Clear); Glucose Urine UA Negative (Negative); Leukocyte Esterase Ur Trace LEU/UL (Negative); Nitrate Urine Negative (Negative); Specific Grav Ur 1.009 (1.001-1.035)
--- NOTE | 2025-06-05 09:51 | ED.GENADULT ---
HPI - General Adult General Chief complaint: Urogenital-Male Stated complaint: blood in urine 2 years Time Seen by Provider: 06/05/25 09:48 Source: patient Mode of arrival: ambulatory Limitations: no limitations History of Present Illness HPI narrative: Patient presents to the ED for evaluation of gross hematuria with passage of multiple blood clots over the past 24 hours. He reports longstanding intermittent small, passable clots since his last lithotripsy in October 2023, typically occurring weekly to biweekly with transient episodes of blood in urine followed by passage of a small red globule. Beginning last night, he noted a significant increase in the volume and frequency of clot passage, describing ?chunk after chunk? with 5?6 pieces passed during a single restroom visit prior to arrival from urgent care. Clots described as sizable, irregular, and sometimes ?iridescent,? with visible material inside, resembling ?jello mold.? He has a history of nephrolithiasis with recurrent large stones since summer 2022 after a 12-year stone-free interval. He underwent lithotripsies in August 2023 and October 2023 for stones too large to pass. He follows with urology (Dr. Brenner). He is seeking diagnostic clarification regarding the source of clots and whether this may be related to stones or prior procedures. He prefers diagnostic evaluation only and does not wish to be admitted if avoidable. Workup to date today includes blood draw and CT scan (performed prior to or during ED visit per patient report). Denies being told results yet; provider will review. No explicit report of dysuria, fever, flank pain, abdominal pain, urinary retention, difficulty initiating stream, or frequency/urgency provided in the conversation. No anticoagulant use mentioned. No trauma reported. Related Data Allergies Allergy/AdvReac Type Severity Reaction Status Date / Time No Known Allergies Allergy Verified 06/05/25 09:21 Review of Systems Review of Systems: All systems reviewed & are unremarkable except as noted in HPI and below PMFSH Past Medical History Medical History Obesity CAD (coronary artery disease) Surgical History Surgical History History of coronary artery stent placement x1 - 2015 Social History Social History Smoking packs per day: 1 Smoking cigarettes per day: 20.0 Years smoked: 20 Smoking pack-years: 20.00 Smoking status: Current every day smoker Tobacco type: cigarettes Alcohol intake: never Alcohol use details: VERY RARE Substance use: never Substance use type: does not use Living arrangements: alone Spiritual care concerns: No Exam Narrative: GENERAL: Well-appearing, well-nourished, and in no acute distress. HEAD: Normocephalic, atraumatic. ENT:? Mucous membranes moist. CHEST: Clear to auscultation.? No respiratory distress. HEART: Regular rate and rhythm. ? Normal peripheral pulses. ABDOMEN: Soft, nontender, nondistended. EXTREMITIES: Normal range of motion. No peripheral edema. SKIN: Warm dry normal color NEURO: Alert and oriented x3. No focal neural deficits noted. Course Vital Signs Vital signs: Vital Signs Temperature 36.9 C 06/05/25 09:22 Pulse Rate 85 06/05/25 09:22 Respiratory Rate 20 06/05/25 09:22 Blood Pressure 184/90 H 06/05/25 09:22 Pulse Oximetry 99 06/05/25 09:22 Oxygen Delivery Room Air 06/05/25 09:22 Temperature 36.9 C 06/05/25 09:22 Pulse Rate 85 06/05/25 09:22 Respiratory Rate 20 06/05/25 09:22 Blood Pressure 184/90 H 06/05/25 09:22 Pulse Oximetry 99 06/05/25 09:22 Oxygen Delivery Room Air 06/05/25 09:22 Medical Decision Making [facility] Narrative Medical decision making narrative: Initially patient declining any treatment or testing. He did agree to CT scan and blood draw. He refused IV placement and pain/nausea medication. On my evaluation patient showed a video of a sizable blood clot that he urinated 3 a strainer yesterday. He stated it took 45 minutes to pass. Patient denied any pain for me though he had complained of pain for nursing staff. CT scan shows concerning bladder mass potential for malignancy. I spoke to Dr. Cavazos from Urology who stated that as long as patient could pass urine he did not require admission at this time and that the urology office will reach out to him to schedule follow-up with cystoscopy and further treatment. Explained findings and follow up information to patient and questions answered. Return precautions discussed. Patient informed his blood pressure was elevated and he states it is always high. He was instructed to follow up with primary care about that finding. He expressed understanding of such. Differential Diagnosis Differential Diagnosis: Hematuria, bladder mass, prostate mass, recurrent neural stone, UTI Medical Records Medical records reviewed: Yes I reviewed the external patient's medical records. Medical records narrative: Reviewed prior neurology procedures for lithotripsy and follow-up information regarding patient having episodic hematuria 2 years. Vital Signs Vital Signs: Vital Signs Temperature 36.9 C 06/05/25 09:22 Pulse Rate 85 06/05/25 09:22 Respiratory Rate 20 06/05/25 09:22 Blood Pressure 184/90 H 06/05/25 09:22 Pulse Oximetry 99 06/05/25 09:22 Oxygen Delivery Room Air 06/05/25 09:22 Temperature 36.9 C 06/05/25 09:22 Pulse Rate 85 06/05/25 09:22 Respiratory Rate 20 06/05/25 09:22 Blood Pressure 184/90 H 06/05/25 09:22 Pulse Oximetry 99 06/05/25 09:22 Oxygen Delivery Room Air 06/05/25 09:22 Patient noted to be hypertensive. Instructed to follow-up with primary care regarding elevated blood pressure. Lab Data Lab results reviewed: Yes I reviewed the patient's lab results. Lab results narrative: CBC chemistry panel unremarkable, UA shows hematuria without evidence signs of urinary tract infection. 06/05/25 10:05 06/05/25 10:05 Labs: Lab Results 06/05/25 06/05/25 Range/Units 09:26 10:05 WBC 9.1 (4.5-10.0) K/mm3 RBC 5.47 (4.6-6.20) M/mm3 Hgb 15.1 (14.0-18.0) g/dL Hct 45.3 (42.0-52.0) % MCV 82.8 (80-100) fl MCH 27.6 (26-34) pg MCHC 33.3 (32-36) g/dl RDW 12.7 (11.5-14.5) % Plt Count 277 (150-375) k/mm3 MPV 9.6 (7.4-10.4) fl Immature Gran % (Auto) 0.2 (0-0.5) % Neut % (Auto) 56.1 (45.5-73.1) % Lymph % (Auto) 33.8 (18.3-44.2) % [place] % (Auto) 7.0 (2.6-8.5) % Eos % (Auto) 2.2 (0-4.4) % Baso % (Auto) 0.7 (0.2-1.2) % Lymph # (Auto) 3.08 (0.9-3.2) K/mm3 [place] # (Auto) 0.6 (0.1-0.6) K/mm3 Eos # (Auto) 0.2 (0-0.3) K/mm3 Baso # (Auto) 0.1 (0.0-0.1) K/mm3 Abs Immat Gran (auto) 0.02 (0.00-0.031) K/mm3 Absolute Neuts (auto) 5.1 (1.3-6.7) K/mm3 Absolute Nucleated RBC 0.000 (0.0-0.012) K/mm3 Nucleated RBC % 0.0 (0.0-0.2) % Sodium 137 (137-145) mmol/L Potassium 4.0 (3.4-5.0) mmol/L Chloride 104 (98-107) mmol/L Carbon Dioxide 24 (22-30) mmol/L Anion Gap 9 (4-12) mmol/L BUN 12 (9-20) mg/dL Creatinine 0.76 (0.7-1.3) mg/dL Estim Creat Clear Calc 144 ml/min Estimated GFR > 60 (59 - ) Glucose 98 (65-110) mg/dL Calcium 10.7 H (8.4-10.2) mg/dL Magnesium 2.1 (1.6-2.3) mg/dL Total Bilirubin 0.4 (0.2-1.3) mg/dL AST 19 (17-59) U/L ALT 19 (6-50) U/L Alkaline Phosphatase 87 (38-126) U/L Total Protein 7.4 (6.3-8.2) g/dL Albumin 4.6 (3.5-5.1) g/dL Urine Color Red H (Yellow) Urine Appearance Cloudy H (Clear) Urine pH 6.5 (5.0-9.0) Ur Specific [place] 1.009 (1.001-1.035) Urine Protein 1+ H (Negative) mg/dL Urine Glucose (UA) Negative (Negative) mg/dL Urine Ketones Negative (Negative) mg/dL Ur Blood (Man) 3+ H (Negative) Urine Nitrate Negative (Negative) Urine Bilirubin Negative (Negative) Urine Urobilinogen 0.2 (<2.0) mg/dL Leukocyte Esterase Rfl Trace H (Negative) PAULO/UL Urine RBC >100 H (0-2) /hpf Urine WBC 6-10 H (0-3) /hpf Ur Squamous Epith Cells None seen (Few) /hpf Urine Bacteria None seen /hpf Urine Casts 0-2 Imaging Data My impression: Bladder mass visible and accompanies about 20-25% of bladder surface area by rough estimate, Radiologist's impression: CT ABDOMEN AND PELVIS WITHOUT CONTRAST Clinical History: hematuria, flank pain, kidney stone history Comparison: CT 09/28/2023 Technique: Unenhanced axial images lung bases to symphysis pubis Coronal, sagittal reformats CT images acquired with automatic exposure control for dose reduction DLP: 869 mGy-cm Findings: Without intravenous contrast, sensitivity for detecting visceral parenchymal abnormalities decreased. Lung bases: Clear. Visualized heart and pericardium: Unremarkable. Liver: Enlarged. Steatosis. Probable early cirrhosis. Gallbladder: Unremarkable. Spleen: Unremarkable. Pancreas: Unremarkable. Adrenal glands: Unremarkable. Kidneys: Right kidney- No hydronephrosis. No renal stones. Left kidney- No hydronephrosis. Tiny stones. Distal esophagus/stomach: Unremarkable. Small bowel loops: Normal caliber and wall thickness. Colon: Diverticula. Normal caliber and wall thickness. Normal RLQ appendix. Nodes: No enlarged nodes. Peritoneum: No ascites. No free intraperitoneal air. Urinary bladder: Asymmetric soft tissue abnormality left UVJ. Prostate: Unremarkable. Bones: No acute bony abnormality. Soft tissues: Right inguinal hernia repair. Unopacified abdominal aorta: No aneurysmal dilatation. Atherosclerotic disease. IMPRESSION: 1. Bladder mass highly worrisome for malignancy. Recommend urology consultation. 2. Tiny stones left kidney. No hydronephrosis. 3. Additional findings as above. Reviewed, dictated and finalized at location R. Discharge Plan Discharge Clinical Impression: Blood clots in urine, Mass of bladder, Elevated blood pressure reading Patient Disposition: Home Condition: Stable Instructions: Antibiotic Form, Hematuria (ED) Additional Instructions: Urology office will reach out to you to schedule a follow up visit. Return to ER if you cannot pass urine and develop significant pain as a result. Patient Language: Citizen Of [place] Follow-up/Referrals: Main Alberts MD [Primary Care Provider, Urology] - 1 Week Referral Note: Office will reach out to schedule appointment Time of Disposition: 10:45
--- NOTE | 2025-06-05 09:53 | PC.NURSE ---
This RN entered pts room to start ordered IV and draw ordered labs. Pt refused, stated, I made it very clear I want no treatments, I just want a diagnosis. This RN educated patient on needing interventions for a diagnosis. Pt continued to refuse IV. This RN told pt we could wait on any intervention until EDP Stuart saw pt. Pt was confrontational during this exchange, verbal deescalation was attempted. EDP Stuart aware. Pt off unit down in CT at this time.
[2025-06-05 10:12] LABS: Hematocrit 45.3 % (42.0-52.0); Hemoglobin 15.1 g/dL (14.0-18.0); Immature Granulocyte Percent A 0.2 % (0-0.5); Lymphocytes Absolute Auto 3.08 K/mm3 (0.9-3.2); Mean Corpuscular HGB Conc 33.3 g/dl (32-36); Mean Corpuscular Hemoglobin 27.6 pg (26-34); Mean Corpuscular Volume 82.8 fl (80-100); Nucleated Red Blood Cells Absolute Auto 0.000 K/mm3 (0.0-0.012); Nucleated Red Blood Cells Perc 0.0 % (0.0-0.2); Platelet Count Result 277 k/mm3 (150-375); Red Blood Count 5.47 M/mm3 (4.6-6.20); White Blood Count 9.1 K/mm3 (4.5-10.0)
[2025-06-05 10:28] LABS: Alanine Aminotransferase 19 U/L (6-50); Albumin Level 4.6 g/dL (3.5-5.1); Alkaline Phosphatase 87 U/L (38-126); Anion Gap 9 mmol/L (4-12); Aspartate Amino Transferase 19 U/L (17-59); Bilirubin,Total 0.4 mg/dL (0.2-1.3); Blood Urea Nitrogen 12 mg/dL (9-20); Calcium 10.7 mg/dL (8.4-10.2); Carbon Dioxide 24 mmol/L (22-30); Chloride 104 mmol/L (98-107); Estimated CRCL calculation 144 ml/min; Estimated Glomerular Filt Rate > 60; Glucose 98 mg/dL (65-110); Magnesium 2.1 mg/dL (1.6-2.3); Potassium 4.0 mmol/L (3.4-5.0); Sodium 137 mmol/L (137-145); Total Protein 7.4 g/dL (6.3-8.2)
--- OUTSIDE RECORDS SUMMARY | 2025-06-05 10:53 | XMS_ITS | Clinical Summary ---
Author Organization [facility] Yarely lopez [place] Address [address] [place] [address] Phone Care Team Providers Care Garment Fitter Name Role Phone Unavailable Primary Care Provider [...] Comments Blood Pressure 168/112 08/09/2015 3:07 PM [employer]AD [employer] Pulse 87 08/09/2015 3:07 PM [employer]AD [employer] Temperature 36.9 C (98.5 F) 08/09/2015 3:07 PM [employer]AD [employer] Respiratory Rate 18 08/09/2015 3:07 PM LEAD [employer] Oxygen Saturation 97% 08/09/2015 3:07 PM LEAD [employer] Inhaled Oxygen Concentration - - Weight 108.9 kg (240 lb) 08/09/2015 3:07 PM LEAD [employer] Height 188 cm (6' 2) 08/09/2015 3:07 PM [employer] Body Mass Index 30.81 08/09/2015 3:07 PM [employer]AD [employer] Plan of Treatment Health Maintenance Due Date Last Done Comments DTAP/TDAP/TD VACCINES (1 - Tdap) 1995 HEPATITIS B VACCINES (1 of 3 - 19+ 3-dose series) 07/06 COLORECTAL SCREENING 2021 Colorectal Cancer Screening 2021 FIT-DNA Q 3 years 2021 FIT/FOBT Q 1 year 2021 Flex Sig/CT Colonography Q 5 years 2021 INFLUENZA VACCINE (#1) 2025 Insurance [facility] BLUE ACCESS/TRUE BLUE PPO
--- OUTSIDE RECORDS SUMMARY | 2025-06-05 10:53 | XMS_ITS | Encounter Summary ---
Author Organization [facility] Address [facility] [place] [address] Care Team Providers Care Break Out Man Name Role Phone Daniel Crump MD Unavailable [phone] , Generic Conversion Primary Care Provider Unavailable Md, Generic Conversion Primary Care Provider Unavailable Md Generic Conversion Primary Care Provider Unavailable None, Provider Primary Care Provider Unavaila ble Encounter Details Date Type Department Care Team (Late st Contact Info) Description 03/13/2016 Abstract [facility] AT [address] [address] Daksha Martel MA Social History Tobacco Use Types Packs/Day Years Used Date Smoking Tobacco: Every Day Cigarettes Smokeless Tobacco: Never Alcohol Use Standard Drinks/Week Comments Yes 0 (1 standard drink = 0.6 oz pur e alcohol) Sex and Gender Information Value Date Recorded Sex Assigned at Not on file Legal Sex Male 1:03 PM CDT Gender Identity Not on file Sexual Orientation Not on file 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 Not on file Not on file documented as of this encounter Plan of Treatment Not on file documented as of this encounter Procedures Procedure Name Priority Date/Time Associated Diagnosis Comments HEPATIC FUNCTION PANEL Routine 03/20/2016 CBC (OUTSIDE LAB) Routine 03/03/2016 COMPREHENSIVE METABOLIC PANEL Routine 03/03/2016 CKMB(MB FRACTION ONLY) Routine 03/03/2016 TROPONIN, QUANT Routine 03/03/2016 CK (CPK) Routine 03/03/2016 documented in this encounter Results * HEPATIC FUNCTION PANEL (03/20/2016) ALBUMIN S/P/B 4.6 3.5 - 5.0 ALKALINE PHOSPHATASE S/P/B 78 ALT 23 AST 28 BILIRUBIN TOTAL S/P/B 0.4 TOTAL PROTEIN S/P/B 7.8 03/20/2016 [facility] Edited Resul t - Final * TROPONIN, QUANT (03/03/2016) TROPONIN I 0.01 03/03/2016 us Doc [facility] LABORAT[facility] Final Result * CPK, MB FRACTION (03/03/2016) CK-MB 1.0 03/03/2016 us Doc [facility]AT[facility] Final Result * CK (CPK) (03/03/2016) CPK 67 03/03/2016 us Doc [facility] LABORATORY Edited Resul t - Final * COMPREHENSIVE METABOLIC PANEL (03/03/2016) SODIUM S/P/B 139 POTASSIUM S/P/B 3.6 CO2 24 CHLORIDE S/P/B 105 GLUCOSE 164 CALCIUM S/P/B 9.3 BUN 10 CREATININE S/P/B 0.75 EGFR NON-AFR. AMER. >60 ALKALINE PHOSPHATASE S/P/B 76 ALT 18 AST 12 BILIRUBIN TOTAL S/P/B 0.4 ALBUMIN S/P/B 4.5 3.5 - 5.0 TOTAL PROTEIN S/P/B 6.8 03/03/2016 us Doc [facility] LABORATORY Final Result * CBC (OUTSIDE LAB) (03/03/2016) WBC 6.4 HGB 15.9 HCT 46.2 PLT 251 03/03/2016 us Doc [facility] Abstract LAB-OUTSIDE/ABSTRACTED Final Result documented in this encounter Visit Diagnoses Not on filedocumented in this encounter Care Teams Break Out Man Relationship Specialty Start Date End Date Md Generic Conversion, PCP - General 03/31/16 10/15/17 Md Generic Conversion, PCP - General 03/14/16 03/30/16 Md Generic Conversion, PCP - General 04/14/15 03/13/16 None, Provider, PCP - General UNKNOWN PHYSICIAN SPECIALTY 01/22/23 Daniel Crump MD [facility]. [address] [address] [place] Senior C Web Developer CARDIOVASCULAR DISEASE 01/05/16 documented as of this encounter
--- OUTSIDE RECORDS SUMMARY | 2025-06-05 10:53 | XMS_ITS | Clinical Summary ---
Author Organization [facility] Address [facility] [place] [address] Care Team Providers Care Foreign Language Interpreter Name Role Phone Daniel Crump MD Unavailable [phone] None, Provider Primary Care Provider Unavaila ble Allergies Active Allergy Reactions Criticality Noted Date Comments Atorvastatin Myalgias 03/29/2016 Nitroglycerin Headache 03/29/2016 Medications No known medications Active Problems Problem Noted Date Diagnosed Date Coronary artery disease invo lving standing [place] coronary artery of standing rock heart without angina pectoris 03/29/2016 Hyperlipidemia, mixed 03/29/2016 Chest pain, unspecified chest pain type 03/09/20 16 Hypertension, essential, benign Family History Medical History Relation Comments Coronary artery disease Other Diabetes Other Stroke Other Cancer Neg Hx Relation Status Comments Other Social History Tobacco Use Types Packs/Day Years Used Date Smoking Tobacco: Every Day Cigarettes Smokeless Tobacco: Never Comments:less than 1/2 pack/ day Alcohol Use Standard Drinks/Week Comments Yes 0 (1 standard drink = 0.6 oz pur e alcohol) rare Sex and Gender Information Value Date Recorded Sex Assigned at Not on file Legal Sex Male 1:03 PM CDT Gender Identity Not on file Sexual Orientation Not on file 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 Not on file Last Filed Vital Signs Vital Sign Reading Time Taken Comments Blood Pressure 182/70 01/22/2023 3:15 PM CDT Pulse 78 01/22/2023 3:15 PM CDT Temperature 36.2 C (97.2 F) 01/22/2023 3:15 PM CDT Respiratory Rate 17 01/22/2023 3:15 PM CDT Oxygen Saturation 97% 01/22/2023 3:15 PM CDT Inhaled Oxygen Concentration - - Weight 129.3 kg (285 lb) 01/22/2023 2:15 PM CDT Height 185.4 cm (6' 1) 01/22/2023 2:15 PM CDT Body Mass Index 37.6 01/22/2023 2:15 PM CDT Plan of Treatment Health Maintenance Due Date Last Done Comments Colorectal Cancer Screening Colonoscopy (10 Years) 1976 Annual Physical 1979 Hepatitis C 1994 DTaP, Tdap and Td Vaccines (1 - Tdap) 1995 1976 Hepatitis B Vaccines (1 of 3 - 19+ 3-dose series) 1995 Pneumococcal Vaccine: Pediatrics (0 to 5 Years) and At-Risk Patients (6 to 49 Years) (1 of 2 - PCV) 1995 ASCVD LDL 03/14/2017 03/14/2016, 03/14/2016 COVID-19 Vaccine (2024- season) 2025 06/03/2022, 07/03/2021, 12/17/2020, Additional history exists Influenza Adult (#1) 2025 06/03/2022, 04/22/2021, 06/24/2020 Hepatitis A Vaccines Aged Out No long er eligible based on patient's age to complete this topic Meningococcal B Vaccine Aged Out No l onger eligible based on patient's age to complete this topic Meningococcal Vaccine Aged Out No fritz gosia eligible based on patient's age to complete this topic RSV Immunizations Under 20 Months Aged Out No longer eligible based on patient's age to complete this topic Procedures Procedure Name Priority Date/Time Associated Diagnosis Comments LIPID PANEL STAT 03/14/2016 11:24 AM CDT from Last 3 Months or Most Recently Relevant to Health Maintenance Results * (ABNORMAL) LIPID PANEL (03/14/2016 11:24 AM CDT) CHOLESTEROL 238 NOTE: Acetaminophen, N Acetyl p benzoquinone imine (NAPQI), N acetylcysteine (NAC), Metamizole, 4 Aminoantipyrine (4 AAP) and 4 Methylamino antipyrine (4 MAP) at high concentrations can cause falsely low results on Lactate, Uric Acid, Cholesterol, Triglyceride, HDL, and Direct LDL. (H) <200 mg/dL [facility] TRIGLYCERIDES 225(H) <150 mg/dL [facility] HDL 36(L) >59 mg/dL [facility] LDL (CALCULATED) 157(H) <100 mg/dL [facility] NON HDL CHOLESTEROL 202 NOTE: WHEN THE TRIGLYCERIDES ARE >200 mg/dL, NON HDL C IS A SECONDARY TARGET OF THERAPY, WITH A GOAL 30 mg/dL HIGHER THAN THE IDENTIFIED LDL C GOAL. (H) <130 mg/dL [facility] CHOL/HDL RATIO 6.6(H) 0.0 - 4.5 [facility] VLDL CALCULATION 45 5 - 55 mg/dL [facility] LIPID INTERPRETATION [facility] CONCENSUS REPORT RECOMMENDATIONS: ADULT CHILD LOW RISK: CHOLESTEROL <200 <170 TRIGLYCERIDE <150 --- HDL >=60 --- LDL <100 <110 BORDERLINE: CHOLESTEROL 200-239 170-199 TRIGLYCERIDE 150-199 --- HDL 40-59 --- LDL 100-159 110-129 HIGH RISK: CHOLESTEROL >=240 >=200 TRIGLYCERIDE >=200 --- HDL <40 --- LDL >=160 >=130 [facility] 03/14/2016 11:2 4 AM CDT 03/14/2016 11:27 AM CDT Rogelio Bean MD LABORATORY Final Result [facility] [address] [id number], from Last 3 Months or Most Recently Relevant to Health Maintenance Insurance [facility] Care Teams Foreign Language Interpreter Relationship Specialty Start Date End Date None, Provider, PCP - General UNKNOWN PHYSICIAN SPECIALTY 01/22/23 Daniel Crump MD [address] [address] [place] Retail Marketing Manager CARDIOVASCULAR DISEASE 01/05/16
== END 2025-06-05 10:56 | disposition home or self-care (01) ==
PROVIDERS: Student in an Organized Health Care Education/Training Program; Emergency Provider Nurse Practitioner; PCP Urology
DX: R31.0 Gross hematuria (principal); N32.9 Bladder disorder, unspecified; R03.0 Elevated blood-pressure reading, without diagnosis of hypertension; I25.10 Atherosclerotic heart disease of native coronary artery without angina pectoris; E66.9 Obesity, unspecified; Z68.35 Body mass index [BMI] 35.0-35.9, adult; F17.210 Nicotine dependence, cigarettes, uncomplicated; Z95.5 Presence of coronary angioplasty implant and graft; Z87.442 Personal history of urinary calculi; R93.2 Abnormal findings on diagnostic imaging of liver and biliary tract
CPT/HCPCS: 36415; 74176; 80053; 81001; 81003; 83735; 85025; 87086; 99284